=== PATIENT | female | born 1935 | race African-American/Black ===

== ENCOUNTER → 2016-12-26 | Day surgery (SDC) | payer MEDICARE ==
[~2016-12-26] MED LIST: AMLO5TAB22 PO; BUPIVACAINE/EPINEPHRINE 0.25% 50 ML VIAL ONE; CIPR500T4 PO; DEXAMETHASONE SOD PHOS 4 MG/ML VIAL IV ONE; GLIP5 PO; ISOSULFAN BLUE 50 MG/5 ML VIAL SQ ONE; LACTATED RINGER'S 1000 ML INJ 1,000 ML ONE; LIDOCAINE 1.5%/EPINEPHrine 1:200,000 PF SOLN 30 ML AMP ONE; LIDOCAINE HCL 1% PF 5 ML AMPULE OTHER ONE; LISI-363 PO; MAGN400T PO; METR250 PO; MIDAZOLAM HCL 2 MG/2 ML VIAL ONE; ONDANSETRON HCL 4 MG/2 ML VIAL IV PUSH ONE; PROPOFOL 200 MG/20 ML AMP IV ONE; PROT40TA PO; SIMV40TA PO; SYNT137T PO; THYROID ENERGY PO; ceFAZolin 2 GM PREMIX 50 ML ONE; ePHEDrine/NS 25 MG/5 ML SYR IV ONE
--- NOTE | 2016-12-26 16:15 | RADONCOP ---
OPERATIVE REPORT DATE OF SURGERY: 12/26/2016 REFERRING PHYSICIAN: Christ Perez PREOPERATIVE DIAGNOSIS: C50.411 - Malignant neoplasm of upper-outer quadrant of right female breast, Diagnosed 11/22/2016 (Active) POSTOPERATIVE DIAGNOSIS: C50.411 - Malignant neoplasm of upper-outer quadrant of right female breast, Diagnosed 11/22/2016 (Active) PROCEDURE: Intraoperative Radiation Therapy to the . SURGEON: Christ Perez ANESTHESIA: General ESTIMATED BLOOD LOSS: Minimal INDICATIONS: Patient is a 81 year old female presenting with right breast cancer. She has elected to receive targeted intraoperative radiation therapy to the . DESCRIPTION OF PROCEDURE: Patient was taken to the operating room and placed on the table in the supine position. Following induction of general anesthesia, the and arm were prepped and draped sterilely. The wound was prepared for intraoperative radiation therapy. Based on the diameter of the cavity, a 4 cm radiation applicator was selected for the delivery of intraoperative radiation therapy. The applicator was then sterilely mounted onto the Intrabeam Stand. Retracting sutures were placed within the skin to be used to retract the skin edges away from the radiation source. The 4 cm Radiation applicator was then sterilely inserted into the wound. The superficial purse-string suture was tied down. Ultrasound was performed of the breast to document conformity of the surgical margins and the distance from the applicator to the skin surface (1.3 cm). The retracting sutures were then secured and a moistened lap pad was placed on the skin surface, followed by an external radiation barrier. Intraoperative radiotherapy was then initiated by the Radiation Oncologist. Total treatment time was 25 minutes. Upon completion of the intraoperative radiotherapy treatment, the radiation applicator, purse-string sutures and retracting sutures were removed from the wound and the device removed. Dr. Perez then completed the surgical procedure. Ponce Nuñez MD 12/26/2016 4:14:49 PM This report was verified and signed electronically [facility] [address] [place] [address] RADIATION ONCOLOGY OPERATIVE REPORT Date: 12/26/2016 Patient Name: Angie Neal
--- NOTE | 2016-12-29 12:45 | MP ---
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 Right breast needle localized lumpectomy with intraoperative radiation Therapy 2. Right axillary sentinel lymph node biopsy x2 3. Placement and removal of intraoperative radiation therapy device [address] Benson Perez [employer] TRIM DAXA Mitchell Radiation oncologist was Dr. Nuñez ANESTHESIA GETA. IV FLUIDS See anesthesia sheet. ESTIMATED BLOOD LOSS 10 mL. DRAINS None COMPLICATIONS None. WOUND CLASSIFICATION Clean. SPECIMENS 1. Right breast needle local lumpectomy short stitch superior, long stitch medial, wire lateral 2. [place] lymph node #1 gamma probe count 4603. 3. [place] lymph node #2 gamma probe count 1041. FINDINGS Good hemostasis was confirmed contained in specimen along with central portion of wire, per confirmation with radiology. Two sentinel lymph nodes identified, #1 was blue with again gamma count of 4603, [place] node #2 was not blue with a count of 1041. Intraoperative radiation size 4 cm. Treatment Time 25 minutes. PROCEDURE IN DETAIL The patient taken to the operating suite, placed in supine position. She was prepped and draped in usual sterile fashion after induction of general endotracheal anesthesia. Brief time-out done stating correct patient, procedure and surgical site and all were in agreement with this. Attention first directed to the right axilla where gamma probe was used in order to find appropriate incision kristina in right axilla. Also preoperative guidance was done with check kristina guidance into the nuclear medicine scan after review and pointing that dye localized to the right axilla sentinel nodes. Also prior to embarking on the procedure, the periareolar area was injected with methylene blue dye. Once the gamma probe identified direction of sentinel node, local anesthetic was injected along skin line just inferior to the hair bearing area. Incision was made with a 15 blade scalpel. Further dissection with the cautery through the subcutaneous tissue down to the lymph nodes through clavipectoral fascia. Allis clamp was used to grasp the fatty tissue and identify the left lymph node. [place] lymph node #1 was noted to have 4603 on gamma probe after dissection and removal, also noted to be blue with methylene blue dye. Second node was also noted and also picked up on the gamma probe and had a count of 1041. This was also sent down for second sentinel lymph node pathology. This node was not blue however. Once the notes were removed, the axilla was further palpated with no evidence of any palpable lymphadenopathy. Also examination did not noted any further blue nodes in the axilla. Irrigation was done to the axilla and hemostasis was obtained with electro Bovie cautery. The wound was then closed with a subcutaneous suture in layers of 3-0 Vicryl followed by 4-0 Monocryl and then sterile dressing applied. Next, attention then directed to the right breast where the wire localization was done, noted to be lateral on the side of the right breast. An incision was directed in a curvilinear fashion. This was done for taking an ellipse of skin to include the wire. Prior to incision local anesthetic injected. The 15 blade was used for incision in skin and further dissection with electro Bovie cautery was then done in order to take a generous piece of tissue involving the wire down past the mass and past the tip of the wire. This was done with electro Bovie cautery. Specimen was excised prior to excision. The specimen was marked with a short stitch superior, a long stitch medial and the wire was noted to be on the lateral aspect of the specimen. Specimen was then sent for radiology with confirmation that the specimen indeed included the mass and clip appropriately. The incision was copiously irrigated with normal saline. Next, the intraoperative radiation therapy portion of the case was begun. A sizer #4 radiation probe was felt to be adequate and fit snugly inside the incisional cavity. The machine was brought in to connect to the site of the probe to direct at the intraoperative maneuvers. At this point, Dr. Nuñez scrubbed in to assist with his portion of the procedure. Dr. Nuñez to dictate his portion of administration of radiation. The 4# probe was placed, a #1 Prolene was used to suture circumferentially in a purse string fashion around the probe to secure in place. the skin edges, were noted to be free of any contact with the machine and the depth of greater than 1 cm by ultrasound probe on the medial, lateral, inferior and superior portions were identified and documented. Next, moist laparotomy pads were placed and the radiation mendoza were secured in place with a hemostat. Again Dr. Nuñez provided his portion directing a radiation therapy for 25 minutes as I scrubbed out. Once this portion of the procedure was completed, the purse string suture was removed and the probe was removed as well. The wound was irrigated thoroughly. Hemostasis was obtained with electro Bovie cautery. The wound was closed in layers using 3-0 Vicryl and local anesthetic was injected at both the axilla and the wound site. 4-0 Monocryl was used for subcuticular suture. The patient tolerated procedure well. There were no intraoperative complications. The patient was taken stable to PACU. DAXA Toussaint was necessary due to the complexity of the open procedure. Ms. Martell assisted in both retraction and exposure for the operative case. All lap and instrument counts were correct at the end of the procedure. MD AILIN Loja/ /3:11 PM /12:32 PM TWILA
== END | disposition home or self-care (01) ==
LOC: ESDC 08:28
PROVIDERS: ATTEND Surgery
DX: C50.411 Malignant neoplasm of upper-outer quadrant of right female breast (principal)
CPT/HCPCS: 00400; 01610; 19125; 38525; 38792; 77290; 77300; 77334; 77370; 77424; 88307; J0690; J1100; J2250; J2405; J3010; J7120; Q9968; 77469

== ENCOUNTER 2017-08-06 17:28 | Emergency (ER) | payer MEDICARE ==
[~2017-08-06] VITALS: Ht 158.8 cm; Wt 78.2 kg
[~2017-08-06 17:28] MED LIST changes: -BUPIVACAINE/EPINEPHRINE 0.25% 50 ML VIAL ONE; -DEXAMETHASONE SOD PHOS 4 MG/ML VIAL IV ONE; -ISOSULFAN BLUE 50 MG/5 ML VIAL SQ ONE; -LACTATED RINGER'S 1000 ML INJ 1,000 ML ONE; -LIDOCAINE 1.5%/EPINEPHrine 1:200,000 PF SOLN 30 ML AMP ONE; -LIDOCAINE HCL 1% PF 5 ML AMPULE OTHER ONE; -MIDAZOLAM HCL 2 MG/2 ML VIAL ONE; -ONDANSETRON HCL 4 MG/2 ML VIAL IV PUSH ONE; -PROPOFOL 200 MG/20 ML AMP IV ONE; -ceFAZolin 2 GM PREMIX 50 ML ONE; -ePHEDrine/NS 25 MG/5 ML SYR IV ONE
[2017-08-06 17:37] VITALS: BP 179/90; PULSE 92; RESP 20; TEMP 98.2; O2SAT 100
[2017-08-06] MEDS ORDERED: GLIP10TA6 PO (17:57)
[2017-08-06] MEDS ORDERED: LEVO-86 PO (17:57)
[2017-08-06] MEDS ORDERED: ZOCO40TA PO (17:57)
[2017-08-06] MEDS ORDERED: AMLO5TAB2 PO (17:57)
[2017-08-06] MEDS ORDERED: PANT40TA3 PO (18:01)
[2017-08-06] MEDS ORDERED: LISI-515 PO (18:01)
[2017-08-06] MEDS ORDERED: oxyCODONE/ACETAMINOPHEN 5 MG/325 MG TAB PO ONE (18:15)
--- NOTE | 2017-08-06 19:07 | PD ---
HPI Chief Complaint: Fall Time Seen by Provider: 17:55 Travel History International Travel<30 days: No Contact w/Intl Traveler<30days: No Traveled to known affect area: No History of Present Illness HPI 82-year-old female complains of pain in the right humerus elbow and forearm. Pain is severe constant. It is worse with range of motion and palpation. Patient denies head injury patient was running from her mailbox to get her phone and then tripped in the house onto the right shoulder causing pain. Timing constant. PFSH Past Medical History Anemia: Yes Arthritis: Yes Autoimmune Disease: Yes Blood Disorders: No Cancer: No Cardiovascular Problems: Yes High Cholesterol: Yes Chest Pain: Yes Diabetes: Yes Patient Takes Glucophage: No Diminished Hearing: No Gastrointestinal Disorders: Yes GERD: Yes Genitourinary: Yes Headaches: Yes Hypertension: Yes Immune Disorder: No Musculoskeletal: Yes Neurologic: No Psychiatric: No Reproductive: No Respiratory: Yes Thyroid Disease: Yes Tetanus Vaccination: > 5 Years Influenza Vaccination: No : 3 Para: 3 Past Surgical History Abdominal Surgery: Yes ("TUMMY TUCK") Gynecologic Surgery: Yes Hysterectomy: Yes Other Surgery: Yes Social History Alcohol Use: Yes (SOMETIMES) Tobacco Use: No Substance Use: No Allergies-Medications (Allergen,Severity, Reaction): Coded Allergies: No Known Allergies (Verified Adverse Reaction, Unknown, 08/06/17) Reported Meds & Prescriptions Reported Meds & Active Scripts Active Reported Lisinopril 20 Mg Tab 20 Mg PO DAILY Pantoprazole (Pantoprazole Sodium) 40 Mg Tab 40 Mg PO DAILY Amlodipine (Amlodipine Besylate) 5 Mg Tab 5 Mg PO DAILY Zocor (Simvastatin) 40 Mg Tab 40 Mg PO HS Glipizide 10 Mg Tab 5 Mg PO DAILY Take 30 minutes before a meal Synthroid (Levothyroxine Sodium) 137 Mcg Tab 137 Mcg PO DAILY Review of Systems Except as stated in HPI: all other systems reviewed are Neg General / Constitutional: No: Fever Eyes: No: Photophobia Physical Exam Narrative GENERAL: 82-year-old female pleasant well-nourished well-developed Vital Signs Date Time Temp Pulse Resp B/P (MAP) Pulse Ox O2 Delivery O2 Flow Rate FiO2 08/06/17 17:50 16 100 Room Air 08/06/17 17:37 98.2 92 20 179/90 (119) 100 SKIN: Warm and dry. HEAD: Atraumatic. Normocephalic. EYES: Pupils equal and round. No scleral icterus. No injection or drainage. ENT: No nasal bleeding or discharge. Mucous membranes pink and moist. NECK: Trachea midline. No JVD. CARDIOVASCULAR: Regular rate and rhythm. RESPIRATORY: No accessory muscle use. Clear to auscultation. Breath sounds equal bilaterally. GASTROINTESTINAL: Abdomen soft, non-tender, nondistended. Hepatic and splenic margins not palpable. MUSCULOSKELETAL: Palpation about the right humerus elbow and forearm. 2+ radial artery pulse bilaterally. The patient has intact median ulnar and radial sensory distributions in the right hand. NEUROLOGICAL: Awake and alert. No obvious cranial nerve deficits. Motor grossly within normal limits. Five out of 5 muscle strength in the arms and legs. Normal speech. PSYCHIATRIC: Appropriate mood and affect; insight and judgment normal. Data Data Last Documented VS Vital Signs Date Time Temp Pulse Resp B/P (MAP) Pulse Ox O2 Delivery O2 Flow Rate FiO2 08/06/17 17:50 16 100 Room Air 08/06/17 17:37 98.2 92 179/90 (119) Orders Orders Forearm (2vws) (08/06/17 18:09) Humerus (Min 2vws) (08/06/17 18:09) Oxycodone-Acetamin 5-325 Mg (Percocet (08/06/17 18:15) ^ Sling (08/06/17 18:09) Splinting (08/06/17 ) [facility] Medical Decision Making Medical Screen Exam Complete: Yes Emergency Medical Condition: Yes Medical Record Reviewed: Yes Differential Diagnosis Fracture dislocation contusion Narrative Course Imaging pending at the time of dictation. Case discussed with Dr. Youssef at 7 PM follow-up imaging and disposition pending results. Carlos Sanchez MD Aug 06, 2017 19:07
[2017-08-06 19:11] VITALS: BP 149/72; PULSE 81; RESP 18; O2SAT 98
--- NOTE | 2017-08-06 19:11 | RADRPT ---
EXAM DATE/TIME: 08/06/2017 18:39 [facility] COMPARISON: No previous studies available for comparison. INDICATIONS : Right upper arm pain after fall. MEDICAL HISTORY : Hypercholesterolemia. Hypertension Gastroesophageal reflux disease. Diabetes. SURGICAL HISTORY : Hysterectomy. ENCOUNTER: Initial ACUITY: 1 day PAIN SCORE: 10/10 LOCATION: Right arm. FINDINGS: There is a mildly displaced fracture of the proximal humeral shaft with oblique orientation. No dislo cation at the shoulder or elbow. CONCLUSION: 1. Mildly displaced obliquely oriented fracture through the proximal right humeral shaft. Shaheen Stiles MD on August 06, 2017 at 19:08 Board Certified Radiologist. This report was verified electronically.
--- NOTE | 2017-08-06 19:13 | RADRPT ---
EXAM DATE/TIME: 08/06/2017 18:44 [facility] COMPARISON: No previous studies available for comparison. INDICATIONS : Right arm pain after fall. MEDICAL HISTORY : Hypercholesterolemia. Hypertension Gastroesophageal reflux disease. Diabetes. SURGICAL HISTORY : Hysterectomy. ENCOUNTER: Initial ACUITY: 1 day PAIN SCORE: 10/10 LOCATION: Right forearm. FINDINGS: Two view examination of the right forearm demonstrates no acute fracture or dislocation. Moderate ost eoarthritis at the first carpometacarpal joint. No bony destructive changes. CONCLUSION: 1. No acute bony abnormality. Shaheen Stiles MD on August 06, 2017 at 19:09 Board Certified Radiologist. This report was verified electronically.
--- NOTE | 2017-08-06 19:24 | PD ---
Physical Exam Narrative General: The patient is a well-developed well-nourished female, uncomfortable appearing pointing to her right arm as a source of the pain. Head and Neck exam: Head is normocephalic atraumatic. Eyes: EOMI, pupils are equal round and reactive to light. Nose: Midline septum with pink mucous membranes Mouth: Dentition unremarkable. Moist mucus membranes. Posterior oropharynx is not erythematous. No tonsillar hypertrophy. Uvula midline. Airway patent. Neck: No palpable lymphadenopathy. No nuchal rigidity. No thyromegaly. Cardiovascular: Regular rate and rhythm with a 3/6 systolic murmur audible, no gallops or rubs. No pulse deficit to the extremities on simultaneous auscultation and palpation of her radial artery. Lungs: Clear to auscultation bilaterally. No wheezes, rhonchi, or rales. Abdomen: Soft, without tenderness to palpation in all 4 quadrants of the abdomen. No guarding, rebound, or rigidity. Normal bowel sounds are audible. No tenderness on palpation of McBurney's point. Extremities: No clubbing, cyanosis, or edema. 2+ pulses in all 4 extremities. No calf tenderness on palpation. The area of interest is the right arm. The patient reports that the worst area of pain is in the mid aspect of the humerus just above the elbow. There is no obvious deformity. Patient has pain with any range of motion. The patient denies having any wrist pain. She reports having tingling sensations in her hand, however she has intact sensation to touch over each finger. The patient has full range of motion with extension and flexion of the wrist. Patient has less than 3 second capillary refill. The patient has intact sensation over the dorsal area between the first and second digit. The patient is able to give the thumbs up sign showing intact radial nerve function. Back: No spinous process tenderness to palpation. No costovertebral angle tenderness to palpation. Neurologic Exam: Grossly nonfocal. Skin Exam: No rash noted. Intact skin that is warm and dry. Data Data Last Documented VS Vital Signs Date Time Temp Pulse Resp B/P (MAP) Pulse Ox O2 Delivery O2 Flow Rate FiO2 08/06/17 21:08 96 Room Air 08/06/17 19:11 81 18 08/06/17 17:37 98.2 Orders Orders Forearm (2vws) (08/06/17 18:09) Humerus (Min 2vws) (08/06/17 18:09) Oxycodone-Acetamin 5-325 Mg (Percocet (08/06/17 18:15) ^ Sling (08/06/17 18:09) Splinting (08/06/17 ) Complete Blood Count With Diff (08/06/17 19:44) Basic Metabolic Panel (Bmp) (08/06/17 19:44) Prothrombin Time / Inr (Pt) (08/06/17 19:44) Act Partial Throm Time (Ptt) (08/06/17 19:44) Iv Access Insert/Monitor (08/06/17 19:44) Ecg Monitoring (08/06/17 19:44) Oximetry (08/06/17 19:44) Morphine Inj (Morphine Inj) (08/06/17 19:45) Ondansetron Inj (Zofran Inj) (08/06/17 19:45) Sodium Chlor 0.9% 1000 Ml Inj (Ns 1000 M (08/06/17 19:45) Splint Or Brace Apply/Monitor (08/06/17 19:44) Labs Laboratory Tests Test 08/06/17 20:00 White Blood Count 7.8 TH/MM3 Red Blood Count 4.33 MIL/MM3 Hemoglobin 11.9 GM/DL Hematocrit 36.2 % Mean Corpuscular Volume 83.6 FL Mean Corpuscular Hemoglobin 27.4 PG Mean Corpuscular Hemoglobin Concent 32.8 % Red Cell Distribution Width 15.8 % Platelet Count 221 TH/MM3 Mean Platelet Volume 9.4 FL Neutrophils (%) (Auto) 55.3 % Lymphocytes (%) (Auto) 34.7 % Monocytes (%) (Auto) 8.7 % Eosinophils (%) (Auto) 0.9 % Basophils (%) (Auto) 0.4 % Neutrophils # (Auto) 4.3 TH/MM3 Lymphocytes # (Auto) 2.7 TH/MM3 Monocytes # (Auto) 0.7 TH/MM3 Eosinophils # (Auto) 0.1 TH/MM3 Basophils # (Auto) 0.0 TH/MM3 CBC Comment DIFF FINAL Differential Comment Prothrombin Time 10.0 SEC Prothromb Time International Ratio 1.0 RATIO Activated Partial Thromboplast Time 21.9 SEC Blood Urea Nitrogen 27 MG/DL Creatinine 0.98 MG/DL Random Glucose 94 MG/DL Calcium Level 9.8 MG/DL Sodium Level 140 MEQ/L Potassium Level 3.8 MEQ/L Chloride Level 105 MEQ/L Carbon Dioxide Level 24.5 MEQ/L Anion Gap 11 MEQ/L Estimat Glomerular Filtration Rate 66 ML/MIN [facility] Medical Record Reviewed: Yes Supervised Visit with SAHIL: Yes Narrative Course During the course of the patient's emergency department visit, the patient's history, examination, and differential diagnosis were reviewed with the patient. The patient was placed on a surveillance system monitor with oximetry and frequent blood pressure monitoring. The patient had IV access obtained and blood work sent for analysis. The patient's case was checked out to me by Dr. Sanchez. Please see his complete history and physical. The patient's case was checked out to me at the conclusion of his shift. The patient reported a fall when she lost her balance trying to go back into the house quickly when she heard her phone ringing. The patient she lost her balance and went into a brick wall with her right shoulder. She reports that she fell to the ground, however she did not injure anything else. She denies hitting her head or losing consciousness. She denies having any neck pain, numbness or tingling to her extremities, or weakness of her extremities. She denies having any chest pain, chest pressure, shortness of breath, or abdominal pain. The patient was initially provided Percocet two 5 mg tablets 1. The patient had IV access obtained prior to my arrival in the room and continue to have pain , therefore she was given 4 mg of morphine, Zofran 4 mg IV. The patient's laboratory studies were reviewed and remarkable for a white count of 7.8, hemoglobin 11.9, platelets 221 with 8.7 monos, PT PTT unremarkable. Basic metabolic profile is remarkable for BUN of 27, GFR of 66 Radiology studies were reviewed and remarkable for an x-ray of the humerus that reveals a mildly displaced obliquely oriented fracture through the proximal right humeral shaft. X-ray of the radius and ulna reveals no acute fracture. A call was placed out to the orthopedic physician on-call regarding this patient 's case. I spoke to Dr. Alvarez at approximately 7:56 PM regarding this patient' s case. She did review the patient's x-ray. The fracture fragments are minimally displaced, therefore she agrees that the patient can be placed in a coaptation splint in hopes that she could avoid surgery given her age. She recommends that the patient follow-up with her in the office later this week. The patient will be given her information and office address/phone number to make an appointment in the morning. The patient is resting comfortably and feels better, is alert and in no distress. The patient's results and examination findings were discussed with the patient. The repeat examination is unremarkable and benign. The history, exam, diagnostic testing, and current condition do not suggest any significant pathology to warrant further testing, continued ED treatment, admission, or surgical evaluation at this point. The vital signs have been stable. The patient does not have uncontrollable pain, intractable vomiting, or other significant symptoms. The patient's condition is stable and appropriate for discharge. The patient will pursue further outpatient evaluation with a primary care physician or other designated or consulting physician as indicated in the discharge instructions. The patient expressed understanding and was agreeable with this plan. Physician Communication Physician Communication The patient's case including history, pertinent physical examination findings, and laboratory studies were discussed with Dr. Alvarez. Please see further information regarding this conversation in the ED course. Diagnosis Primary Impression: Humerus shaft fracture Qualified Codes: S42.331A - Displaced oblique fracture of shaft of humerus, right arm, initial encounter for closed fracture Referrals: Dorcas Alvarez MD 3 days Patient Instructions: Arm Fracture in Adults (ED), General Instructions Med/Other Pt SpecificInfo: Prescription(s) given Scripts Hydrocodone-Acetaminophen (Hydrocodone-Acetaminophen) 5-325 mg Tab 1-2 TAB PO Q6H Y for PAIN, #16 TAB 0 Refills Prov: Hansa Youssef MD 08/06/17 Disposition: 01 DISCHARGE HOME Condition: Stable Hansa Youssef MD Aug 06, 2017 19:24
[2017-08-06] MEDS ORDERED: MORPHINE SULFATE 4 MG/ML INJ IV PUSH ONE (19:45)
[2017-08-06] MEDS ORDERED: ONDANSETRON HCL 4 MG/2 ML VIAL IV ONE (19:45)
[2017-08-06] MEDS ORDERED: SODIUM CHLOR 0.9% 1000 ML INJ 1,000 ML IV SCH (19:45)
[2017-08-06 20:22] LABS: AUTOMATED NEUTROPHIL # 4.3 TH/MM3 (1.8-7.7); BASOPHIL % 0.4 % (0.0-2.0); EOSINOPHIL # 0.1 TH/MM3 (0-0.4); EOSINOPHIL % 0.9 % (0.0-4.0); HEMATOCRIT 36.2 % (35.0-46.0); HEMOGLOBIN 11.9 GM/DL (11.6-15.3); LYMPH % 34.7 % (9.0-44.0); LYMPHOCYTE # 2.7 TH/MM3 (1.0-4.8); MEAN CELL VOLUME 83.6 FL (80.0-100.0); MEAN CORPUSCULAR HEMOGLOBIN 27.4 PG (27.0-34.0); MEAN CORPUSCULAR HGB CONC 32.8 % (32.0-36.0); MEAN PLATELET VOLUME 9.4 FL (7.0-11.0); MONO % 8.7 % (0.0-8.0); MONOCYTE # 0.7 TH/MM3 (0-0.9); NEUT % 55.3 % (16.0-70.0); PLATELET COUNT 221 TH/MM3 (150-450); RED BLOOD COUNT 4.33 MIL/MM3 (4.00-5.30); RED CELL DISTRIBUTION WIDTH 15.8 % (11.6-17.2); WHITE BLOOD COUNT 7.8 TH/MM3 (4.0-11.0)
[2017-08-06] MEDS ORDERED: HYDR-3516 PO (20:47)
[2017-08-06 20:50] LABS: BICARBONATE 24.5 MEQ/L (21.0-32.0); CALCIUM 9.8 MG/DL (8.5-10.1); CREATININE 0.98 MG/DL (0.50-1.00)
[2017-08-06 21:08] VITALS: O2SAT 96
== END 2017-08-06 21:15 | disposition home or self-care (01) ==
LOC: NEPE 17:28
DX: S42.331A Displaced oblique fracture of shaft of humerus, right arm, initial encounter for closed fracture (principal); W19.XXXA Unspecified fall, initial encounter; Y92.009 Unspecified place in unspecified non-institutional (private) residence as the place of occurrence of the external cause
CPT/HCPCS: 29125; 73060; 73090; 80048; 85025; 85610; 85730; 96361; 96374; 96375; 99284; J2270; J2405; J7030